=== PATIENT | male | born 1955 | race Caucasian/White ===

== ENCOUNTER 2021-04-04 10:30 | Inpatient (IN) | payer OTHER ==
[~2021-04-04] VITALS: Ht 160 cm; Wt 86.6 kg
[2021-04-04] MEDS ORDERED: FORTAMET500 MG PO (12:46)
[2021-04-04] MEDS ORDERED: CLONAZE PO (12:46)
[2021-04-04] MEDS ORDERED: CRESTOR20 MG PO (12:46)
[2021-04-04] MEDS ORDERED: TAMS0.4C PO (12:47)
[2021-04-04] MEDS ORDERED: PROSCAR5 MG PO (12:48)
[2021-04-11] MEDS ORDERED: CLONAZEPAM0.5 MG (13:36)
== END 2021-04-13 20:12 | disposition home or self-care (01) | DRG 330 ==
LOC: SURH 04-11 09:00 → O/R 04-11 11:00 → SURH 04-11 11:00
PROVIDERS: ADMIT Colon & Rectal Surgery; ATTEND Colon & Rectal Surgery
PROC: 0DTP4ZZ Resection of Rectum, Percutaneous Endoscopic Approach (ICD-10-PCS; 2021-04-11)
PROC: 07BC4ZZ Excision of Pelvis Lymphatic, Percutaneous Endoscopic Approach (ICD-10-PCS; 2021-04-11)
PROC: 0DJD8ZZ Inspection of Lower Intestinal Tract, Via Natural or Artificial Opening Endoscopic (ICD-10-PCS; 2021-04-11)
PROC: 4A12X4Z Monitoring of Cardiac Electrical Activity, External Approach (ICD-10-PCS; 2021-04-11)
PROC: 0DTN4ZZ Resection of Sigmoid Colon, Percutaneous Endoscopic Approach (ICD-10-PCS; principal; 2021-04-11 09:00)
DX: K57.20 Diverticulitis of large intestine with perforation and abscess without bleeding (principal); K92.1 Melena; D12.5 Benign neoplasm of sigmoid colon; K66.0 Peritoneal adhesions (postprocedural) (postinfection); R59.0 Localized enlarged lymph nodes; R19.00 Intra-abdominal and pelvic swelling, mass and lump, unspecified site; E78.5 Hyperlipidemia, unspecified; E11.9 Type 2 diabetes mellitus without complications; I87.2 Venous insufficiency (chronic) (peripheral)